=== PATIENT | male | born 1955 | race American Indian/Alaskan Native ===

== ENCOUNTER 2017-02-22 10:16 | Emergency (ER) | payer SELFPAY ==
[2017-02-22 10:25] VITALS: BP 140/74
--- NOTE | 2017-02-22 10:47 | Emergency Department Report ---
ED Upper Extremity Inj HPI - General Chief Complaint: Extremity Injury, Lower Stated Complaint: l hand pain Time Seen by Provider: 02/22/17 10:30 Source: patient Mode of arrival: Ambulatory Limitations: No Limitations - History of Present Illness Complaint: Injury to:: left, hand -: Sudden Other Extremity Injury: Hand: Left Other Injuries: none Handedness: right Place: home Worsens With: none Associated Symptoms: denies other symptoms - Related Data Previous Rx's Medication Instructions Recorded Last Taken Type methylPREDNISolone [Medrol] 4 mg PO DAILY #1 tab.ds.pk 02/22/17 Unknown Rx Allergies Allergy/AdvReac Type Severity Reaction Status Date / Time No Known Allergies Allergy Unverified 02/22/17 10:25 ED Review of Systems ROS: Stated complaint: LEFT HAND DEFORMITY Other details as noted in HPI Comment: All other systems reviewed and negative Musculoskeletal: other (l hand pain; he states this am all of the sudden his l index finger and hand started to hurt. he had just pulled garage door down and walked outside) ED Past Medical Hx - Past Medical History Previous Medical History?: Yes Additional medical history: severe hand arthritits w nodules - Surgical History Past Surgical History?: No - Social History Smoking Status: Never Smoker Substance Use Type: None - Medications Home Medications: Home Medications Medication Instructions Recorded Confirmed Last Taken Type methylPREDNISolone [Medrol] 4 mg PO DAILY #1 tab.ds.pk 02/22/17 Unknown Rx ED Physical Exam - General Limitations: No Limitations General appearance: alert - Head Head exam: Present: normocephalic - Eye Eye exam: Present: PERRL - ENT ENT exam: Present: mucous membranes moist - Neck Neck exam: Present: normal inspection - Respiratory Respiratory exam: Present: normal lung sounds bilaterally - Cardiovascular Cardiovascular Exam: Present: regular rate - GI/Abdominal GI/Abdominal exam: Present: soft - Extremities Exam Extremities exam: Present: normal inspection, other (severe arthritis to both hands. ) - Back Exam Back exam: Present: normal inspection - Neurological Exam Neurological exam: Present: alert, oriented X3 - Psychiatric Psychiatric exam: Present: normal affect, normal mood - Skin Skin exam: Present: warm, dry ED Course Vital Signs 02/22/17 10:23 Temperature 98 F Pulse Rate 84 Respiratory 20 Rate Blood Pressure 140/74 O2 Sat by Pulse 100 Oximetry - Reevaluation(s) Reevaluation #1: 02/22/17 11:28 pt to er today p walking outside and opening his garage door when his hand started to hurt he has severe b hand arthritis- undx per pt no snuff box good pulses rapid cap refill radial and ulnar nerve intact ambulatory no focal neuro def medicated xray neg dc home w dc poc to pcp and ortho discussed w pt. ED Medical Decision Making - Radiology Data Radiology results: image reviewed - Medical Decision Making see note - Differential Diagnosis ro fx Critical care attestation.: If time is entered above; I have spent that time in minutes in the direct care of this critically ill patient, excluding procedure time. ED Disposition Clinical Impression: Arthritis, Hand pain Disposition: DC-01 TO HOME OR SELFCARE Is pt being admited?: No Does the pt Need Aspirin: No Condition: Stable Instructions: Osteoarthritis (ED) Additional Instructions: over the counter motrin/ibruprofen for minor pain will help rest avoid cold follow up ortho as we discussed Referrals: LEA SHAHID MD [Staff Physician] - 3-5 Days AN[place] RIVER MD [Staff Physician] - 3-5 Days Time of Disposition: 11:22
[2017-02-22] MEDS ORDERED: DECADRON IM ONE (11:25)
--- NOTE | 2017-02-22 11:52 | XRay Report ---
LEFT HAND 2 VIEWS: 02/22/17 10:38:00 CLINICAL: Pain. FINDINGS: Moderate diffuse osteopenia. The scaphoid is collapsed and increased in density consistent with a chronic fracture with subsequent radiocarpal joint arthritis. The rest of the carpal bones are grossly normal. Moderate osteoarthritis at the basal joint of the thumb and osteoarthritis of the first MCP joint. The distal radius and ulna are normal. No acute fracture or dislocation. The digits are normal except for osteopenia. Mild periarticular soft tissue swelling and mild soft tissue swelling of the hand. No soft tissue air or foreign body. 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 Nonspecific soft tissue swelling.
== END 2017-02-22 11:39 | disposition home or self-care (01) ==
LOC: ED 10:16
DX: M19.041 Primary osteoarthritis, right hand (principal); M19.042 Primary osteoarthritis, left hand
CPT/HCPCS: 73120; 96372; 99283; J1100

== ENCOUNTER 2018-12-21 10:49 | Emergency (ER) | payer BC, MEDICARE ==
[2018-12-21 11:09] VITALS: BP 138/63
--- NOTE | 2018-12-21 14:11 | Emergency Department Report ---
ED Rash HPI - HPI Chief Complaint: Skin Rash Stated Complaint: RASH ON BACK Time Seen by Provider: 12/21/18 12:13 Duration: 2 months Location: Back, Upper Extremities, Lower Extremities Suspected Cause: Plant Rash Symptoms: Yes Itching, No Facial Swelling, No Tongue/Oral Swelling, No Breathing Difficulties, No Choking Sensation, No Wheezing/Dyspnea, No Peeling, No Blistering, No Fever, No Lightheaded, No Malaise, No Myalgias Severity: moderate Other History: This is a 63-year-old -[place] male who presents to the emergency room with a pruritic rash to back, bilateral lower extremity, and bilateral upper extremity for 2 months intermittently. Patient states he is using [id number] creams with some improvement of rash but can't get rid of itching. He denies fever, swelling, difficulty swallowing, or break in skin. ED Review of Systems ROS: Stated complaint: RASH ON BACK Other details as noted in HPI Constitutional: denies: chills, fever Respiratory: denies: cough, shortness of breath, wheezing Cardiovascular: denies: chest pain, palpitations Gastrointestinal: denies: abdominal pain, nausea, diarrhea Skin: rash, pruritus. denies: lesions Neurological: denies: headache, weakness, paresthesias Psychiatric: denies: anxiety, depression ED Past Medical Hx - Past Medical History Previous Medical History?: No Additional medical history: severe hand arthritits w nodules - Surgical History Past Surgical History?: No - Social History Smoking Status: Never Smoker Substance Use Type: None - Medications Home Medications: Home Medications Medication Instructions Recorded Confirmed Last Taken Type methylPREDNISolone [Medrol] 4 mg PO DAILY #1 tab.ds.pk 02/22/17 Unknown Rx hydrOXYzine PAMOATE [Vistaril] 25 mg PO Q6HR PRN #20 capsule 12/21/18 Unknown Rx methylPREDNISolone [Medrol 4MG 4 mg PO DAILY #1 tab.ds.pk 12/21/18 Unknown Rx DOSEPAK (21 tabs)] Rash Exam - Exam General: Vital signs noted. No distress. Alert and acting appropriately. HEENT: No Periorbital Edema, No Conjuctival Injection, No Chemosis, No Perioral Edema, No Tongue Edema, No Uvular Edema, No Compromised Airway, No Drooling Lungs: Yes Good Air Exchange (Normal Breath Sounds), No Wheezes, No Ronchi, No Stridor, No Cough, No Labored Respirations, No Retractions, No Use of Accessory Muscles, No Other Abnormal Lung Sounds Heart: Yes Regular, No Murmur Skin: Yes Maculopapular Rash (erythematous maculopapular rash to the lumbosacral region, bilateral lower extremity, and bilateral posterior forearms, nontender), No Urticarial Rash, No Morbilliform rash, No Bulla(e), No Excoriations, No Weeping, No Tenderness, No Erythema, No Edema, No Encrustations ED Course Vital Signs 12/21/18 11:08 Temperature 98.1 F Pulse Rate 72 Respiratory 20 Rate Blood Pressure 138/63 O2 Sat by Pulse 99 Oximetry ED Medical Decision Making - Medical Decision Making Disposition was seen by this provider. Vitals are stable and patient is in no acute distress. There is a maculopapular rash to posterior torso, bilateral upper extremity and bilateral lower extremity which appeared to be healing poison jeanie dermatitis. Start Medrol Dosepak and Vistaril. Patient instructed to follow up with PCP. Patient discharged home stable. Critical care attestation.: If time is entered above; I have spent that time in minutes in the direct care of this critically ill patient, excluding procedure time. ED Disposition Clinical Impression: Poison jeanie dermatitis, Pruritic rash Disposition: TO HOME OR SELFCARE Is pt being admited?: No Does the pt Need Aspirin: No Condition: Stable Instructions: Poison Jeanie (ED), Contact Dermatitis (ED) Prescriptions: methylPREDNISolone [Medrol 4MG DOSEPAK (21 tabs)] 4 mg PO DAILY #1 tab.ds.pk hydrOXYzine PAMOATE [Vistaril] 25 mg PO Q6HR PRN #20 capsule PRN Reason: Itching Referrals: HERB MOLINA MD [Primary Care Provider] - 3-5 Days ROULA PARSONS MD [Staff Physician] - 3-5 Days [facility] [Provider Group] - 3-5 Days Time of Disposition: 14:14
== END 2018-12-21 14:20 | disposition home or self-care (01) ==
LOC: ED 10:49
DX: L23.7 Allergic contact dermatitis due to plants, except food (principal); L29.9 Pruritus, unspecified; M19.90 Unspecified osteoarthritis, unspecified site; Z79.899 Other long term (current) drug therapy